=== PATIENT | female | born 2005 | race Caucasian/White ===

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

== ENCOUNTER 2023-01-14 13:28 | Emergency (ER) | payer OTHER ==
[~2023-01-14] VITALS: Ht 167.6 cm; Wt 72.6 kg
[~2023-01-14 13:28] MED LIST changes: +PRENATAL TABLE1 EAC2 PO
[2023-01-14 14:57] LABS: Influenza A, PCR NEGATIVE (NEGATIVE); Influenza B, PCR NEGATIVE (NEGATIVE); Resp Syncytial Virus, PCR NEGATIVE (NEGATIVE); SARS-Cov-2 (COVID-19) PCR, MMC NEGATIVE (NEGATIVE)
== END 2023-01-14 17:21 | disposition home or self-care (01) ==
LOC: ER 13:28
PROVIDERS: Student in an Organized Health Care Education/Training Program
DX: O99.512 Diseases of the respiratory system complicating pregnancy, second trimester (principal); J06.9 Acute upper respiratory infection, unspecified; Z3A.25 25 weeks gestation of pregnancy; Z88.8 Allergy status to other drugs, medicaments and biological substances
CPT/HCPCS: 0241U; 71046; 94640; 94664; 99284-25; A9270

== ENCOUNTER 2023-04-27 06:03 | Inpatient (IN) | payer OTHER ==
[2023-04-27] VITALS (31 sets, daily range): BP systolic 82–133; BP diastolic 43–78
[~2023-04-27] VITALS: Ht 167.6 cm; Wt 87.7 kg
[2023-04-27 07:13] LABS: BASOPHILS ABSOLUTE AUTO 0.07 K/mm3 (0.00-0.23); BASOPHILS PERCENT AUTO 1 % (0-2); EOSINOPHILS ABSOLUTE AUTO 0.24 K/mm3 (0.00-0.68); EOSINOPHILS PERCENT AUTO 3 % (0-6); Hematocrit 31.3 % (33.0-51.0); Hemoglobin 10.4 g/dL (11.5-16.0); IMMATURE GRAN ABSOLUTE AUTO 0.04 K/mm3 (0.00-0.10); IMMATURE GRAN PERCENT AUTO 0 % (0-1); LYMPHOCYTES ABSOLUTE AUTO 2.16 K/mm3 (0.84-5.20); LYMPHOCYTES PERCENT AUTO 23 % (21-46); MONOCYTES ABSOLUTE AUTO 0.68 K/mm3 (0.16-1.47); MONOCYTES PERCENT AUTO 7 % (4-13); Mean Corpuscular HGB 30.6 pg (26.0-34.0); Mean Corpuscular HGB Conc 33.2 g/dL (31.5-36.5); Mean Corpuscular Volume 92 fL (80-100); Mean Platelet Volume 10.7 fL (9.1-12.4); NEUTROPHILS ABSOLUTE AUTO 6.32 K/mm3 (1.96-9.15); NEUTROPHILS PERCENT AUTO 67 % (41-73); Platelet Count 189 K/mm3 (150-400); RDW Coefficient Variation 14.2 % (11.7-14.2); RDW Standard Deviation 47.1 fL (35.1-46.3); White Blood Cell Count 9.51 K/mm3 (4.00-11.30)
[2023-04-28 04:06] VITALS: BP 100/51
[2023-04-28 07:14] VITALS: BP 119/70
[2023-04-28] MEDS ORDERED: IBUP800 PO (09:58)
[2023-04-28] MEDS ORDERED: DOCU100 PO (09:58)
[2023-04-28 11:14] VITALS: BP 111/70
[2023-04-28 17:12] VITALS: BP 120/75
== END 2023-04-28 17:55 | disposition home or self-care (01) | DRG 806 ==
LOC: OBS 06:03 → BC 06:03 → OBS 06:20 → BC 06:21
PROVIDERS: ADMIT Advanced Practice Midwife
PROC: 10E0XZZ Delivery of Products of Conception, External Approach (ICD-10-PCS; principal; 2023-04-27)
PROC: 10H07YZ Insertion of Other Device into Products of Conception, Via Natural or Artificial Opening (ICD-10-PCS; 2023-04-27)
PROC: 00HU33Z Insertion of Infusion Device into Spinal Canal, Percutaneous Approach (ICD-10-PCS; 2023-04-27)
PROC: 3E0R3BZ Introduction of Anesthetic Agent into Spinal Canal, Percutaneous Approach (ICD-10-PCS; 2023-04-27)
PROC: 3E033VJ Introduction of Other Hormone into Peripheral Vein, Percutaneous Approach (ICD-10-PCS; 2023-04-27)
PROC: 3E0334Z Introduction of Serum, Toxoid and Vaccine into Peripheral Vein, Percutaneous Approach (ICD-10-PCS; 2023-04-27)
DX: O48.0 Post-term pregnancy (principal); O99.324 Drug use complicating childbirth; Z37.0 Single live birth; O77.0 Labor and delivery complicated by meconium in amniotic fluid; O42.02 Full-term premature rupture of membranes, onset of labor within 24 hours of rupture; F12.90 Cannabis use, unspecified, uncomplicated; Z88.8 Allergy status to other drugs, medicaments and biological substances; Z67.11 Type A blood, Rh negative; Z3A.40 40 weeks gestation of pregnancy; Z28.21 Immunization not carried out because of patient refusal
CPT/HCPCS: 36415; 51702; 59025; 85025; 86850; 86900; 86901; 99214; A9270; J1885; J2210; J2590; J3010; J7120

== ENCOUNTER → 2025-02-15 | Outpatient (CLI) | payer OTHER ==
[~2025-02-15] MED LIST changes: +DOCU100 PO; +IBUP800 PO
== END ==
LOC: LAB 16:11 → LAB SHORT 16:11
DX: Z34.80 Encounter for supervision of other normal pregnancy, unspecified trimester (principal)
CPT/HCPCS: 87081; 87150

== ENCOUNTER 2025-02-28 08:15 | Inpatient (IN) | payer OTHER ==
[2025-02-28] VITALS (32 sets, daily range): BP systolic 92–134; BP diastolic 54–95
[~2025-02-28] VITALS: Ht 165.1 cm; Wt 79.5 kg
[2025-02-28] MEDS ORDERED: ePHEDrine Sulfate 50 MG/ML 1ML Injection XX PRN (08:50)
[2025-02-28] MEDS ORDERED: Ondansetron HCl 2 MG / ML 2ML Vial IV PRN (08:50)
[2025-02-28] MEDS ORDERED: Lactated Ringer's 1,000 ML IV PRN (08:50)
[2025-02-28] MEDS ORDERED: Lactated Ringer's 1,000 ML IV SCH ×3 (08:50→22:35)
[2025-02-28] MEDS ORDERED: Acetaminophen 500 MG Tab PO PRN (08:50)
[2025-02-28] MEDS ORDERED: Oxytocin 10 Unit / ML Vial IM PRN (08:50)
[2025-02-28] MEDS ORDERED: Misoprostol 200 MCG Tab PR PRN (08:50)
[2025-02-28] MEDS ORDERED: FentaNYL 2mcg/ml-Bup 0.1% Epd 250 ML EPI PRN (08:50)
[2025-02-28] MEDS ORDERED: Methylergonovine Maleate 0.2MG / ML 1ML Amp IM PRN (08:50)
[2025-02-28] MEDS ORDERED: Carboprost Tromethamine 250 MCG/ML 1ML Amp IM PRN (08:50)
[2025-02-28] MEDS ORDERED: OXYTOCIN/RINGER'S LACTATE 500 ML IV PRN (08:50)
[2025-02-28] MEDS ORDERED: Misoprostol 200 MCG Tab BC PRN (08:50)
[2025-02-28] MEDS ORDERED: Calcium Carbonate 500 MG Tab Chew PO PRN (08:55)
[2025-02-28] MEDS ORDERED: Tranexamic Acid 100 ML IV SCH (09:00)
[2025-02-28 09:15] LABS: BASOPHILS ABSOLUTE AUTO 0.06 K/mm3 (0.00-0.23); BASOPHILS PERCENT AUTO 1 % (0-2); EOSINOPHILS ABSOLUTE AUTO 0.18 K/mm3 (0.00-0.68); EOSINOPHILS PERCENT AUTO 2 % (0-6); Hemoglobin 10.1 g/dL (11.5-16.0); IMMATURE GRAN PERCENT AUTO 1 % (0-1); LYMPHOCYTES ABSOLUTE AUTO 1.95 K/mm3 (0.84-5.20); LYMPHOCYTES PERCENT AUTO 18 % (21-46); MONOCYTES ABSOLUTE AUTO 0.95 K/mm3 (0.16-1.47); MONOCYTES PERCENT AUTO 9 % (4-13); Mean Corpuscular HGB 29.3 pg (26.0-34.0); Mean Corpuscular HGB Conc 32.6 g/dL (31.5-36.5); Mean Corpuscular Volume 90 fL (80-100); Mean Platelet Volume 10.3 fL (9.1-12.4); NEUTROPHILS PERCENT AUTO 71 % (41-73); Platelet Count 203 K/mm3 (150-400); RDW Coefficient Variation 14.2 % (11.7-14.2); RDW Standard Deviation 46.1 fL (35.1-46.3); Red Blood Cell Count 3.45 M/mm3 (3.80-5.20); White Blood Cell Count 11.14 K/mm3 (4.00-11.30)
[2025-02-28] MEDS ORDERED: Misoprostol 25 MCG Tab SL PRN (10:45)
[2025-02-28] MEDS ORDERED: Lactated Ringer's 1,000 ML IV ONE ×2 (17:59→20:31)
[2025-02-28] MEDS ORDERED: NS 1,000 ML IV ONE (20:44)
[2025-02-28] MEDS ORDERED: CeFAZolin Sodium 2,000 MG in NS 100 ML IV SCH (22:35)
[2025-02-28] MEDS ORDERED: Azithromycin 500 MG in NS 250 ML IV SCH ×2 (22:35→22:55)
[2025-02-28] MEDS ORDERED: Metoclopramide HCl 5MG / ML 2ML Vial IV ONE (22:45)
[2025-02-28] MEDS ORDERED: Citric Acid/Sodium Citrate 30 ML BTL PO ONE (22:45)
[2025-02-28] MEDS ORDERED: Azithromycin 500 MG VIAL ONE (22:56)
[2025-02-28] MEDS ORDERED: Lidocaine HCl 2% 10 ML SDA ONE (22:58)
[2025-02-28] MEDS ORDERED: Ondansetron HCl 2 MG / ML 2ML Vial ONE (22:58)
[2025-02-28] MEDS ORDERED: ePHEDrine Sulfate 50 MG/ML 1ML Injection ONE (22:59)
[2025-02-28] MEDS ORDERED: FentaNYL Citrate 50 MCG/ML 2 ML Injection ONE ×2 (23:29→23:46)
[2025-02-28] MEDS ORDERED: Metoclopramide HCl 5MG / ML 2ML Vial ONE (23:30)
--- NOTE | 2025-02-28 23:50 | NUR ---
02/28/25 1270 Mallory Kaufman PATIENT ARRIVED TO OR WITH WELLS CATHETER IN PLACE DRAINING YELLOW URINE. PATIENT ALSO ARRIVED WITH EPIDURAL IN PLACE.
[2025-02-28] MEDS ORDERED: Bupivacaine HCl 0.25% 30 ML Injection ONE (23:51)
[2025-03-01] VITALS (26 sets, daily range): BP systolic 99–126; BP diastolic 52–96
[2025-03-01 00:07] LABS: PCO2 Cord - Arterial 57.4 mmHg (40-50); PO2 Cord - Arterial 16.3 mmHg (16-20); pH Cord - Arterial 7.26 (7.28-7.35)
[2025-03-01 00:09] LABS: PCO2 Cord - Venous 36.9 mmHg (40-50); pH Umbilical Cord - Venous 7.39 (7.26-7.35)
[2025-03-01] MEDS ORDERED: Promethazine HCl 25 MG Tab PO PRN (00:15)
[2025-03-01] MEDS ORDERED: DiphenhydrAMINE HCL 25 MG Cap PO PRN (00:15)
[2025-03-01] MEDS ORDERED: Magnesium Hydroxide Conc 10 ML UDC PO PRN (00:20)
[2025-03-01] MEDS ORDERED: Ketorolac Tromethamine 30mg Vial ONE (00:20)
[2025-03-01] MEDS ORDERED: Metoclopramide HCl 10 MG Tab PO PRN (00:20)
[2025-03-01] MEDS ORDERED: Carboprost Tromethamine 250 MCG/ML 1ML Amp IM PRN (00:20)
[2025-03-01] MEDS ORDERED: Simethicone 80 MG Chew PO PRN (00:20)
[2025-03-01] MEDS ORDERED: Methylergonovine Maleate 0.2MG / ML 1ML Amp IM PRN (00:20)
[2025-03-01] MEDS ORDERED: Ondansetron HCl 2 MG / ML 2ML Vial IV PRN ×2 (00:25→00:50)
[2025-03-01] MEDS ORDERED: OXYTOCIN/RINGER'S LACTATE 500 ML IV SCH (00:25)
[2025-03-01] MEDS ORDERED: Acetaminophen 500 MG Tab PO PRN (00:25)
[2025-03-01] MEDS ORDERED: Misoprostol 200 MCG Tab PR PRN (00:25)
[2025-03-01] MEDS ORDERED: OxyCODONE HCL 5 MG TAB PO PRN ×2 (00:25→00:30)
[2025-03-01] MEDS ORDERED: Lanolin Cream TOP PRN (00:25)
[2025-03-01] MEDS ORDERED: Rho(D) Immune Globulin 300 MCG / SYR IM PRN (00:30)
[2025-03-01] MEDS ORDERED: HYDROmorphone HCl/Pf 1MG SYR IV PRN ×2 (00:45→00:50)
[2025-03-01] MEDS ORDERED: FentaNYL Citrate 50 MCG/ML 2 ML Injection IV PRN ×2 (00:50)
[2025-03-01] MEDS ORDERED: Atropine Sulfate 0.1 MG/ML 10ML SYR IV PRN (00:50)
[2025-03-01] MEDS ORDERED: Ketorolac Tromethamine 30mg Vial IV SCH (01:00)
[2025-03-01] MEDS ORDERED: NS 1,000 ML IV SCH (06:05)
[2025-03-01 06:07] LABS: BASOPHILS ABSOLUTE AUTO 0.03 K/mm3 (0.00-0.23); BASOPHILS PERCENT AUTO 0 % (0-2); EOSINOPHILS PERCENT AUTO 0 % (0-6); Hematocrit 28.7 % (33.0-51.0); Hemoglobin 9.5 g/dL (11.5-16.0); IMMATURE GRAN ABSOLUTE AUTO 0.09 K/mm3 (0.00-0.10); IMMATURE GRAN PERCENT AUTO 1 % (0-1); LYMPHOCYTES ABSOLUTE AUTO 1.08 K/mm3 (0.84-5.20); LYMPHOCYTES PERCENT AUTO 6 % (21-46); MONOCYTES ABSOLUTE AUTO 0.51 K/mm3 (0.16-1.47); MONOCYTES PERCENT AUTO 3 % (4-13); Mean Corpuscular HGB 29.7 pg (26.0-34.0); Mean Corpuscular HGB Conc 33.1 g/dL (31.5-36.5); Mean Corpuscular Volume 90 fL (80-100); Mean Platelet Volume 10.4 fL (9.1-12.4); NEUTROPHILS ABSOLUTE AUTO 17.65 K/mm3 (1.96-9.15); NEUTROPHILS PERCENT AUTO 91 % (41-73); Platelet Count 228 K/mm3 (150-400); RDW Coefficient Variation 14.3 % (11.7-14.2); RDW Standard Deviation 45.9 fL (35.1-46.3); White Blood Cell Count 19.36 K/mm3 (4.00-11.30)
--- NOTE | 2025-03-01 06:39 | NUR ---
STATUS: NO STAFF AVAILABLE TO ASSIST APARTMENT LEASING MANAGER WITH AMBULATING PATIENT TO THE BATHROOM. PTS PADS WERE CHANGED & SAT AT EDGE OF BED. NO CONCERNS. TOI ESCAMILLA ON. SCDS ON. FC INSITU.
[2025-03-01] MEDS ORDERED: Ibuprofen 400 MG Tab PO SCH (08:00)
[2025-03-01] MEDS ORDERED: Lactated Ringer's 1,000 ML IV SCH (08:50)
[2025-03-01] MEDS ORDERED: Prenatal Vit/FE Fumarate/FA 1 Tab PO SCH (09:00)
[2025-03-01] MEDS ORDERED: Docusate Sodium 100 MG Cap PO SCH (09:00)
--- NOTE | 2025-03-01 13:15 | NUR ---
LATE ENTRY NOTE PT COMPLAINING OF PAIN DIRECTLY ON HER INCISION SITE ON HER RIGHT SIDE. SHE STATES THE PAIN IS A CONSTANT BURNING. THE PAIN INCREASED ONCE HER MEDIPORE DRESSING WAS REMOVED AFTER HER SHOWER. Nato VÁSQUEZ NOTIFIED AT 0956. ORDERS TO PLACE STERI STRIPS AND TO OFFER 100MCG OF FENTANYL IV IF NEEDED FOR THE PAIN. PT DECLINED SHE DOESN'T LIKE THE FEELING OF FENTANYL. PT REPORTS THE PAIN IS NOW TOLERABLE WITH ROUTINE PAIN MEDS , BUT IT DEPENDS ON HER POSITIONING. SHE DID RATE THE PAIN 9/10 SHORTLY AFTER THE SHOWER. BUT NOW STATES IT IS 3/10. DAREN CAME BY TO SEE PT AND LOOKED AT INCISION SITE. PLAN TO STILL PUT STERI STRIPS ON. PT HAS HAD VISITORS, AND WILL HAVE THEM PLACED AFTER. INCISION APPEARS TO HAVE TWO SPOTS THAT ARE NOT WELL APPROXIMATED AND SOME BRUISING AROUD THE SITE.
[2025-03-01] MEDS ORDERED: Morphine Sulfate 4 MG/1 ML Injection IV PRN (19:35)
[2025-03-01] MEDS ORDERED: Ibuprofen 400 MG Tab PO PRN (23:00)
[2025-03-02 03:20] VITALS: BP 103/59
[2025-03-02 09:05] VITALS: BP 121/67
[2025-03-02] MEDS ORDERED: IBUP800 PO (09:29)
[2025-03-02] MEDS ORDERED: OXYC5 PO (09:29)
== END 2025-03-02 10:35 | disposition home or self-care (01) | DRG 787 ==
LOC: OBS 08:15 → BC 08:34
PROVIDERS: Obstetrics & Gynecology; ADMIT Advanced Practice Midwife
PROC: 10D00Z1 Extraction of Products of Conception, Low, Open Approach (ICD-10-PCS; principal; 2025-03-01)
DX: O42.013 Preterm premature rupture of membranes, onset of labor within 24 hours of rupture, third trimester (principal); O99.324 Drug use complicating childbirth; F12.10 Cannabis abuse, uncomplicated; O99.334 Smoking (tobacco) complicating childbirth; O99.344 Other mental disorders complicating childbirth; Z3A.38 38 weeks gestation of pregnancy; Z37.0 Single live birth; O76 Abnormality in fetal heart rate and rhythm complicating labor and delivery; O69.81X0 Labor and delivery complicated by cord around neck, without compression, not applicable or unspecified; F41.9 Anxiety disorder, unspecified; O99.02 Anemia complicating childbirth; K21.9 Gastro-esophageal reflux disease without esophagitis; F17.290 Nicotine dependence, other tobacco product, uncomplicated; O99.62 Diseases of the digestive system complicating childbirth; Z88.8 Allergy status to other drugs, medicaments and biological substances; Z79.899 Other long term (current) drug therapy; Z67.91 Unspecified blood type, Rh negative
CPT/HCPCS: 36415; 51702; 59025; 59070; 82803; 85025; 85460; 86850; 86900; 86901; 86923; 99214; A9270; J0456; J0690; J1885; J2003; J2405; J2765; J2791; J3010; J7030; J7050; J7120

== ENCOUNTER → 2025-04-21 | Outpatient (CLI) | payer OTHER ==
[~2025-04-21] MED LIST changes: +OXYC5 PO
[2025-04-25 12:01] LABS: C. TRACHOMATIS BY TMA,THINPREP Negative (Negative); N. GONORRHOEAE BY TMA,THINPREP Negative (Negative); SPECIMEN SOURCE Cervical
== END ==
LOC: LAB SHORT 19:12 → LAB 19:12
PROVIDERS: Advanced Practice Midwife
DX: Z01.419 Encounter for gynecological examination (general) (routine) without abnormal findings (principal); Z11.3 Encounter for screening for infections with a predominantly sexual mode of transmission
CPT/HCPCS: 87491; 87591